=== PATIENT | male | born 1950 | race African-American/Black ===

== ENCOUNTER 2022-07-12 19:30 | Inpatient (IN) ==
[2022-07-12] MEDS ORDERED: SODIUM CHLORIDE 0.9% 1,000 ML IV STA (19:59)
[2022-07-12 21:00] LABS: Basophils % 0.1 % (0.0-0.8); Hematocrit 50.4 VOL% (42.0-52.0); Hemoglobin 17.7 GM/DL (14.0-18.0); Immature Granulocytes % 0.7 %; Immature Granulocytes Absolute 0.11 #; Lymphocytes # 0.8 10*3/uL (1.4-4.0); Lymphocytes % 5.3 % (21.2-54.2); Mean Corpuscular HGB Conc 35.1 GM/DL (32-36); Mean Corpuscular Volume 82.6 FL (87-102); Mean Platelet Volume 12.9 FL (9.6-12.0); Monocytes # 1.3 10*3/uL (0.11-0.8); Monocytes % 9.1 % (1.7-12.7); Neutrophils % 84.8 % (38.7-73.9); Platelet Count 85 T/CUMM (130-400); Red Cell Distribution Width 15.5 % (9.3-17.3); White Blood Count 14.8 T/CUMM (4-12)
[2022-07-12 21:09] LABS: Mucus,Urine Occasional /LPF (Occasional); RBC,Urine 9115 /HPF (0-4)
[2022-07-12 21:10] LABS: INR 1.2; PT Patient Result 13.5 SECS (10.1-12.1)
[2022-07-12 21:11] LABS: Bilirubin,Urine Moderate mg/dL (Negative); Glucose,Urine (UA) Negative (Negative); Ketones,Urine Trace mg/dL (Negative); Nitrite,Urine Positive (Negative); Protein,Urine >=300 mg/dL (Negative); Urine Appearance CLOUDY (Clear); Urine Color Brown (Yellow); Urine pH >= 9.0 (4.5-8.0)
[2022-07-12 21:12] LABS: Blood, Urine Large mg/dL (Negative)
[2022-07-12 21:31] LABS: Albumin 3.6 G/DL (3.4-5.0); Bilirubin,Total 1.7 MG/DL (0.20-1.00); Calcium 8.8 MG/DL (8.5-10.1); Osmolality,Calculated 308.3 MOS/KG (273-304); Potassium 3.4 MMOL/L (3.5-5.1); Total Protein 7.6 G/DL (6.4-8.2)
[2022-07-13] MEDS ORDERED: SODIUM CHLORIDE 0.9% 1,000 ML IV STA (00:10)
[2022-07-13] MEDS ORDERED: diphenhydrAMINE CAP 25 MG CAPSULE PO PRN (00:11)
[2022-07-13] MEDS ORDERED: ONDANSETRON 4 MG/2 ML VIAL IV PRN (00:11)
[2022-07-13] MEDS ORDERED: NICOTINE 21 MG/24 HR PATCH TRANSDERM PRN (00:11)
[2022-07-13] MEDS ORDERED: MORPHINE 2 MG/1 ML SYRINGE IV PRN (00:11)
[2022-07-13] MEDS ORDERED: hydrALAZINE 20 MG/1 ML VIAL IV PRN (00:11)
[2022-07-13] MEDS ORDERED: guaiFENesin/DM ER 600-30 MG TABLET PO PRN (00:11)
[2022-07-13] MEDS ORDERED: ZALEPLON 5 MG CAPSULE PO PRN (00:11)
[2022-07-13] MEDS ORDERED: ALBUTEROL/IPRATROPIUM 3 ML NEB RESP TX PRN (00:11)
[2022-07-13] MEDS: cefTRIAXone 1,000 MG in SODIUM CHLORIDE 0.9% 100 ML IV SCH (01:12)
[2022-07-13] MEDS: metroNIDAZOLE INJ 500 MG/100 ML PREMIX IV SCH ×3 (03:15→17:30)
[2022-07-13 03:48] LABS: Basophils % 0.1 % (0.0-0.8); Eosinophils % 0.1 % (0.00-10.9); Hematocrit 42.6 VOL% (42.0-52.0); Hemoglobin 14.8 GM/DL (14.0-18.0); Immature Granulocytes % 0.6 %; Immature Granulocytes Absolute 0.07 #; Lymphocytes # 0.9 10*3/uL (1.4-4.0); Lymphocytes % 7.3 % (21.2-54.2); Mean Corpuscular HGB Conc 34.7 GM/DL (32-36); Mean Corpuscular Volume 83.4 FL (87-102); Monocytes # 1.3 10*3/uL (0.11-0.8); Monocytes % 11.2 % (1.7-12.7); Neutrophils % 80.7 % (38.7-73.9); Platelet Count 59 T/CUMM (130-400); Red Blood Count 5.11 MC/CUMM (3.8-5.5); White Blood Count 11.8 T/CUMM (4-12)
[2022-07-13 03:51] LABS: Albumin 2.7 G/DL (3.4-5.0); Bilirubin,Total 1.1 MG/DL (0.20-1.00); Calcium 8.3 MG/DL (8.5-10.1); Osmolality,Calculated 307.1 MOS/KG (273-304); Potassium 3.2 MMOL/L (3.5-5.1); Total Protein 6.5 G/DL (6.4-8.2)
[2022-07-13 04:10] LABS: Platelet Estimate Decreased
[2022-07-13] MEDS: SODIUM CHLORIDE 0.9% 1,000 ML IV SCH ×2 (04:24→17:31)
[2022-07-13] MEDS ORDERED: POTASSIUM CHLORIDE RIDER 10 MEQ/100 ML PREMIX IV PRN (08:15)
[2022-07-13] MEDS: PANTOPRAZOLE 40 MG TABLET PO SCH (09:44)
[2022-07-13] MEDS ORDERED: PNEUMOCOCCAL VACCINE (13 VALENT) 0.5 ML SYRINGE IM ONE (11:15)
[2022-07-13] MEDS ORDERED: ALBUTEROL 2.5 MG/3 ML NEB RESP TX PRN (13:39)
[2022-07-13] MEDS: SIMVASTATIN 20 MG TABLET PO SCH (21:10)
[2022-07-13] MEDS: MIRTAZAPINE 30 MG TABLET PO SCH (21:10)
[2022-07-13] MEDS: POLYETHYLENE GLYCOL POWDER 17 GM PACK PO SCH (22:45)
[2022-07-14] MEDS: metroNIDAZOLE INJ 500 MG/100 ML PREMIX IV SCH ×2 (00:54→22:15)
[2022-07-14] MEDS: cefTRIAXone 1,000 MG in SODIUM CHLORIDE 0.9% 100 ML IV SCH (01:45)
[2022-07-14 05:56] LABS: Basophils % 0.1 % (0.0-0.8); Eosinophils # 0.1 10*3/uL (0.0-0.87); Eosinophils % 0.9 % (0.00-10.9); Hematocrit 37.5 VOL% (42.0-52.0); Hemoglobin 13.3 GM/DL (14.0-18.0); Immature Granulocytes % 0.5 %; Immature Granulocytes Absolute 0.04 #; Lymphocytes # 0.8 10*3/uL (1.4-4.0); Lymphocytes % 9.9 % (21.2-54.2); Mean Corpuscular HGB Conc 35.5 GM/DL (32-36); Mean Platelet Volume 12.4 FL (9.6-12.0); Monocytes % 11.7 % (1.7-12.7); Neutrophils % 76.9 % (38.7-73.9); Platelet Count 79 T/CUMM (130-400); Red Blood Count 4.52 MC/CUMM (3.8-5.5); White Blood Count 8.1 T/CUMM (4-12)
[2022-07-14 06:18] LABS: Platelet Estimate Decreased
[2022-07-14 06:20] LABS: Calcium 8.4 MG/DL (8.5-10.1); Osmolality,Calculated 304.8 MOS/KG (273-304)
[2022-07-14] MEDS ORDERED: POTASSIUM CHLORIDE 20 MEQ TABLET PO ONE (07:43)
[2022-07-14] MEDS: CIPROFLOXACIN INJ 200 MG/100 ML PREMIX IV SCH ×2 (11:37→20:32)
[2022-07-14] MEDS: SERTRALINE 100 MG TABLET PO SCH (11:38)
[2022-07-14] MEDS: ARIPiprazole 5 MG TABLET PO SCH (11:38)
[2022-07-14] MEDS: PANTOPRAZOLE 40 MG TABLET PO SCH (11:38)
[2022-07-14] MEDS: CYANOCOBALAMIN 500 MCG TABLET PO SCH (11:39)
[2022-07-14] MEDS: POLYETHYLENE GLYCOL POWDER 17 GM PACK PO SCH ×2 (11:39→20:31)
[2022-07-14] MEDS: METOPROLOL SUCCINATE XL 100 MG TABLET PO SCH (11:39)
[2022-07-14] MEDS: SIMVASTATIN 20 MG TABLET PO SCH (20:31)
[2022-07-14] MEDS: MIRTAZAPINE 30 MG TABLET PO SCH (20:31)
[2022-07-15] MEDS: SODIUM CHLORIDE 0.9% 1,000 ML IV SCH ×4 (01:39→22:00)
[2022-07-15 05:10] LABS: Basophils % 0.3 % (0.0-0.8); Hematocrit 35.5 VOL% (42.0-52.0); Immature Granulocytes % 1.2 %; Immature Granulocytes Absolute 0.09 #; Lymphocytes # 0.7 10*3/uL (1.4-4.0); Lymphocytes % 9.7 % (21.2-54.2); Mean Corpuscular HGB Conc 33.8 GM/DL (32-36); Mean Corpuscular Volume 84.9 FL (87-102); Mean Platelet Volume 11.7 FL (9.6-12.0); Monocytes # 0.8 10*3/uL (0.11-0.8); Monocytes % 11.3 % (1.7-12.7); Neutrophils % 77.5 % (38.7-73.9); Platelet Count 87 T/CUMM (130-400); Red Blood Count 4.18 MC/CUMM (3.8-5.5); Red Cell Distribution Width 14.8 % (9.3-17.3); White Blood Count 7.3 T/CUMM (4-12)
[2022-07-15 05:35] LABS: Calcium 8.4 MG/DL (8.5-10.1); Osmolality,Calculated 299.7 MOS/KG (273-304); Potassium 3.8 MMOL/L (3.5-5.1)
[2022-07-15 05:50] LABS: Platelet Estimate Decreased
[2022-07-15] MEDS: metroNIDAZOLE INJ 500 MG/100 ML PREMIX IV SCH (06:04)
[2022-07-15] MEDS: ARIPiprazole 5 MG TABLET PO SCH (09:45)
[2022-07-15] MEDS: CYANOCOBALAMIN 500 MCG TABLET PO SCH (09:45)
[2022-07-15] MEDS: POLYETHYLENE GLYCOL POWDER 17 GM PACK PO SCH ×2 (09:45→21:24)
[2022-07-15] MEDS: PANTOPRAZOLE 40 MG TABLET PO SCH (09:46)
[2022-07-15] MEDS: SERTRALINE 100 MG TABLET PO SCH (09:46)
[2022-07-15] MEDS: METOPROLOL SUCCINATE XL 100 MG TABLET PO SCH (09:46)
[2022-07-15] MEDS: CIPROFLOXACIN INJ 200 MG/100 ML PREMIX IV SCH (09:48)
[2022-07-15] MEDS: metroNIDAZOLE 500 MG TABLET PO SCH ×2 (15:09→21:24)
[2022-07-15] MEDS: amLODIPine 5 MG TABLET PO SCH (15:09)
[2022-07-15] MEDS: CIPROFLOXACIN 500 MG TABLET PO SCH (21:24)
[2022-07-15] MEDS: MIRTAZAPINE 30 MG TABLET PO SCH (21:24)
[2022-07-15] MEDS: SIMVASTATIN 20 MG TABLET PO SCH (21:24)
[2022-07-16 06:01] LABS: Basophils % 0.3 % (0.0-0.8); Eosinophils # 0.2 10*3/uL (0.0-0.87); Eosinophils % 2.1 % (0.00-10.9); Hematocrit 38.1 VOL% (42.0-52.0); Hemoglobin 13.2 GM/DL (14.0-18.0); Immature Granulocytes % 3.4 %; Immature Granulocytes Absolute 0.26 #; Lymphocytes # 1.2 10*3/uL (1.4-4.0); Lymphocytes % 15.8 % (21.2-54.2); Mean Corpuscular HGB Conc 34.6 GM/DL (32-36); Mean Corpuscular Volume 83.6 FL (87-102); Mean Platelet Volume 11.9 FL (9.6-12.0); Monocytes % 12.6 % (1.7-12.7); Neutrophils % 65.8 % (38.7-73.9); Platelet Count 92 T/CUMM (130-400); Red Blood Count 4.56 MC/CUMM (3.8-5.5); Red Cell Distribution Width 14.6 % (9.3-17.3); White Blood Count 7.6 T/CUMM (4-12)
[2022-07-16 06:16] LABS: Calcium 8.6 MG/DL (8.5-10.1); Osmolality,Calculated 288.1 MOS/KG (273-304); Potassium 3.2 MMOL/L (3.5-5.1)
[2022-07-16 06:23] LABS: Platelet Estimate Decreased
[2022-07-16] MEDS ORDERED: POTASSIUM CHLORIDE 20 MEQ TABLET PO ONE (08:35)
[2022-07-16] MEDS: POLYETHYLENE GLYCOL POWDER 17 GM PACK PO SCH ×2 (09:55→22:37)
[2022-07-16] MEDS: METOPROLOL SUCCINATE XL 100 MG TABLET PO SCH (09:57)
[2022-07-16] MEDS: amLODIPine 5 MG TABLET PO SCH (09:57)
[2022-07-16] MEDS: CYANOCOBALAMIN 500 MCG TABLET PO SCH (09:57)
[2022-07-16] MEDS: ARIPiprazole 5 MG TABLET PO SCH (09:57)
[2022-07-16] MEDS: SERTRALINE 100 MG TABLET PO SCH (09:58)
[2022-07-16] MEDS: PANTOPRAZOLE 40 MG TABLET PO SCH (09:58)
[2022-07-16] MEDS: CIPROFLOXACIN 500 MG TABLET PO SCH ×2 (09:58→22:38)
[2022-07-16] MEDS: metroNIDAZOLE 500 MG TABLET PO SCH ×3 (09:58→22:38)
[2022-07-16] MEDS: SODIUM CHLORIDE 0.9% 1,000 ML IV SCH (09:59)
[2022-07-16] MEDS ORDERED: amLODIPine 5 MG TABLET PO ONE (11:05)
[2022-07-16] MEDS ORDERED: MAGNESIUM SULF RIDER 4 GM/100 ML PREMIX IV ONE (11:13)
[2022-07-16] MEDS: SIMVASTATIN 20 MG TABLET PO SCH (22:38)
[2022-07-16] MEDS: TAMSULOSIN 0.4 MG CAPSULE PO SCH (22:38)
[2022-07-16] MEDS: MIRTAZAPINE 30 MG TABLET PO SCH (22:41)
[2022-07-17] MEDS: SODIUM CHLORIDE 0.9% 1,000 ML IV SCH ×2 (02:58→14:00)
[2022-07-17 06:55] LABS: Basophils % 0.4 % (0.0-0.8); Eosinophils % 0.5 % (0.00-10.9); Hematocrit 38.9 VOL% (42.0-52.0); Hemoglobin 13.4 GM/DL (14.0-18.0); Immature Granulocytes % 4.1 %; Immature Granulocytes Absolute 0.33 #; Lymphocytes # 1.1 10*3/uL (1.4-4.0); Lymphocytes % 13.8 % (21.2-54.2); Mean Corpuscular HGB Conc 34.4 GM/DL (32-36); Mean Corpuscular Volume 83.1 FL (87-102); Mean Platelet Volume 11.7 FL (9.6-12.0); Monocytes # 0.9 10*3/uL (0.11-0.8); Neutrophils % 70.2 % (38.7-73.9); Platelet Count 101 T/CUMM (130-400); Red Blood Count 4.68 MC/CUMM (3.8-5.5); Red Cell Distribution Width 14.7 % (9.3-17.3)
[2022-07-17 07:20] LABS: Calcium 8.7 MG/DL (8.5-10.1); Potassium 3.7 MMOL/L (3.5-5.1)
[2022-07-17] MEDS: ARIPiprazole 5 MG TABLET PO SCH (09:17)
[2022-07-17] MEDS: CYANOCOBALAMIN 500 MCG TABLET PO SCH (09:18)
[2022-07-17] MEDS: amLODIPine 10 MG TABLET PO SCH (09:18)
[2022-07-17] MEDS: metroNIDAZOLE 500 MG TABLET PO SCH ×3 (09:18→21:26)
[2022-07-17] MEDS: TAMSULOSIN 0.4 MG CAPSULE PO SCH ×2 (09:18→21:26)
[2022-07-17] MEDS: CIPROFLOXACIN 500 MG TABLET PO SCH ×2 (09:18→21:26)
[2022-07-17] MEDS: METOPROLOL SUCCINATE XL 100 MG TABLET PO SCH (09:19)
[2022-07-17] MEDS: SERTRALINE 100 MG TABLET PO SCH (09:19)
[2022-07-17] MEDS: PANTOPRAZOLE 40 MG TABLET PO SCH (09:19)
[2022-07-17] MEDS: POLYETHYLENE GLYCOL POWDER 17 GM PACK PO SCH ×2 (09:21→21:27)
[2022-07-17] MEDS ORDERED: LIDOCAINE 2% TOP JELLY 20 ML VIAL INTRAURETH ONE (10:00)
[2022-07-17] MEDS: SIMVASTATIN 20 MG TABLET PO SCH (21:26)
[2022-07-17] MEDS: MIRTAZAPINE 30 MG TABLET PO SCH (21:26)
[2022-07-18 05:12] LABS: Basophils % 0.3 % (0.0-0.8); Eosinophils # 0.2 10*3/uL (0.0-0.87); Eosinophils % 1.8 % (0.00-10.9); Hematocrit 36.7 VOL% (42.0-52.0); Hemoglobin 12.6 GM/DL (14.0-18.0); Immature Granulocytes % 4.3 %; Immature Granulocytes Absolute 0.39 #; Lymphocytes # 1.5 10*3/uL (1.4-4.0); Lymphocytes % 15.9 % (21.2-54.2); Mean Corpuscular HGB Conc 34.3 GM/DL (32-36); Mean Corpuscular Volume 84.6 FL (87-102); Mean Platelet Volume 11.2 FL (9.6-12.0); Monocytes # 0.9 10*3/uL (0.11-0.8); Monocytes % 9.7 % (1.7-12.7); Platelet Count 115 T/CUMM (130-400); Red Blood Count 4.34 MC/CUMM (3.8-5.5); Red Cell Distribution Width 14.7 % (9.3-17.3); White Blood Count 9.1 T/CUMM (4-12)
[2022-07-18 05:28] LABS: Calcium 8.5 MG/DL (8.5-10.1); Potassium 3.4 MMOL/L (3.5-5.1)
[2022-07-18] MEDS: METOPROLOL SUCCINATE XL 100 MG TABLET PO SCH (09:50)
[2022-07-18] MEDS: metroNIDAZOLE 500 MG TABLET PO SCH ×3 (09:50→20:01)
[2022-07-18] MEDS: CIPROFLOXACIN 500 MG TABLET PO SCH ×2 (09:50→20:01)
[2022-07-18] MEDS: CYANOCOBALAMIN 500 MCG TABLET PO SCH (09:50)
[2022-07-18] MEDS: amLODIPine 10 MG TABLET PO SCH (09:50)
[2022-07-18] MEDS: TAMSULOSIN 0.4 MG CAPSULE PO SCH ×2 (09:50→20:01)
[2022-07-18] MEDS: ARIPiprazole 5 MG TABLET PO SCH (09:50)
[2022-07-18] MEDS: POLYETHYLENE GLYCOL POWDER 17 GM PACK PO SCH ×2 (09:50→21:59)
[2022-07-18] MEDS: PANTOPRAZOLE 40 MG TABLET PO SCH (09:50)
[2022-07-18] MEDS: SERTRALINE 100 MG TABLET PO SCH (09:50)
[2022-07-18] MEDS: SODIUM CHLORIDE 0.9% 1,000 ML IV SCH (10:03)
[2022-07-18] MEDS: SIMVASTATIN 20 MG TABLET PO SCH (20:01)
[2022-07-18] MEDS: MIRTAZAPINE 30 MG TABLET PO SCH (20:01)
[2022-07-19 05:00] LABS: Basophils % 0.2 % (0.0-0.8); Eosinophils # 0.2 10*3/uL (0.0-0.87); Eosinophils % 1.8 % (0.00-10.9); Hematocrit 35.8 VOL% (42.0-52.0); Hemoglobin 12.2 GM/DL (14.0-18.0); Immature Granulocytes % 4.3 %; Immature Granulocytes Absolute 0.35 #; Lymphocytes # 1.7 10*3/uL (1.4-4.0); Lymphocytes % 21.1 % (21.2-54.2); Mean Corpuscular HGB Conc 34.1 GM/DL (32-36); Mean Corpuscular Volume 85.4 FL (87-102); Mean Platelet Volume 10.8 FL (9.6-12.0); Monocytes # 0.7 10*3/uL (0.11-0.8); Neutrophils % 63.6 % (38.7-73.9); Platelet Count 137 T/CUMM (130-400); Red Blood Count 4.19 MC/CUMM (3.8-5.5); Red Cell Distribution Width 14.8 % (9.3-17.3); White Blood Count 8.2 T/CUMM (4-12)
[2022-07-19 05:26] LABS: Calcium 8.5 MG/DL (8.5-10.1); Osmolality,Calculated 283.1 MOS/KG (273-304); Potassium 3.8 MMOL/L (3.5-5.1)
[2022-07-19] MEDS: SODIUM CHLORIDE 0.9% 1,000 ML IV SCH ×2 (10:27→17:48)
[2022-07-19] MEDS: ARIPiprazole 5 MG TABLET PO SCH (10:28)
[2022-07-19] MEDS: metroNIDAZOLE 500 MG TABLET PO SCH ×3 (10:28→21:40)
[2022-07-19] MEDS: METOPROLOL SUCCINATE XL 100 MG TABLET PO SCH (10:28)
[2022-07-19] MEDS: SERTRALINE 100 MG TABLET PO SCH (10:28)
[2022-07-19] MEDS: TAMSULOSIN 0.4 MG CAPSULE PO SCH ×2 (10:28→21:40)
[2022-07-19] MEDS: PANTOPRAZOLE 40 MG TABLET PO SCH (10:29)
[2022-07-19] MEDS: CYANOCOBALAMIN 500 MCG TABLET PO SCH (10:29)
[2022-07-19] MEDS: CIPROFLOXACIN 500 MG TABLET PO SCH ×2 (10:29→21:41)
[2022-07-19] MEDS: POLYETHYLENE GLYCOL POWDER 17 GM PACK PO SCH ×2 (10:29→21:41)
[2022-07-19] MEDS: amLODIPine 10 MG TABLET PO SCH (10:29)
[2022-07-19] MEDS: SIMVASTATIN 20 MG TABLET PO SCH (21:40)
[2022-07-19] MEDS: MIRTAZAPINE 30 MG TABLET PO SCH (21:41)
[2022-07-20 05:41] LABS: Basophils # 0.1 10*3/uL (0.0-0.2); Basophils % 0.4 % (0.0-0.8); Eosinophils # 0.1 10*3/uL (0.0-0.87); Eosinophils % 0.7 % (0.00-10.9); Hematocrit 35.6 VOL% (42.0-52.0); Hemoglobin 12.2 GM/DL (14.0-18.0); Immature Granulocytes % 2.1 %; Immature Granulocytes Absolute 0.26 #; Lymphocytes # 1.5 10*3/uL (1.4-4.0); Lymphocytes % 12.3 % (21.2-54.2); Mean Corpuscular HGB Conc 34.3 GM/DL (32-36); Mean Corpuscular Volume 85.4 FL (87-102); Mean Platelet Volume 10.7 FL (9.6-12.0); Monocytes # 0.7 10*3/uL (0.11-0.8); Monocytes % 5.5 % (1.7-12.7); Platelet Count 161 T/CUMM (130-400); Red Blood Count 4.17 MC/CUMM (3.8-5.5); Red Cell Distribution Width 14.8 % (9.3-17.3); White Blood Count 12.3 T/CUMM (4-12)
[2022-07-20 05:58] LABS: Calcium 8.6 MG/DL (8.5-10.1); Osmolality,Calculated 285.8 MOS/KG (273-304); Potassium 3.7 MMOL/L (3.5-5.1)
[2022-07-20] MEDS: ARIPiprazole 5 MG TABLET PO SCH (10:39)
[2022-07-20] MEDS: metroNIDAZOLE 500 MG TABLET PO SCH ×3 (10:39→20:40)
[2022-07-20] MEDS: TAMSULOSIN 0.4 MG CAPSULE PO SCH ×2 (10:39→20:40)
[2022-07-20] MEDS: CIPROFLOXACIN 500 MG TABLET PO SCH ×2 (10:39→20:40)
[2022-07-20] MEDS: SERTRALINE 100 MG TABLET PO SCH (10:39)
[2022-07-20] MEDS: PANTOPRAZOLE 40 MG TABLET PO SCH (10:40)
[2022-07-20] MEDS: CYANOCOBALAMIN 500 MCG TABLET PO SCH (10:40)
[2022-07-20] MEDS: amLODIPine 10 MG TABLET PO SCH (10:41)
[2022-07-20] MEDS: POLYETHYLENE GLYCOL POWDER 17 GM PACK PO SCH ×2 (10:42→20:42)
[2022-07-20] MEDS: METOPROLOL SUCCINATE XL 100 MG TABLET PO SCH (10:43)
[2022-07-20] MEDS ORDERED: ERGOCALCIFEROL 50,000 UNIT CAPSULE PO SCH (14:30)
[2022-07-20] MEDS: CALCIUM (CARBONATE) 500 MG TABLET PO SCH (16:05)
[2022-07-20] MEDS: SODIUM CHLORIDE 0.9% 1,000 ML IV SCH (16:05)
[2022-07-20] MEDS: MIRTAZAPINE 30 MG TABLET PO SCH (20:40)
[2022-07-20] MEDS: SIMVASTATIN 20 MG TABLET PO SCH (20:41)
[2022-07-21] MEDS: METOPROLOL SUCCINATE XL 100 MG TABLET PO SCH (09:24)
[2022-07-21] MEDS: POLYETHYLENE GLYCOL POWDER 17 GM PACK PO SCH ×2 (09:24→21:23)
[2022-07-21] MEDS: amLODIPine 10 MG TABLET PO SCH (09:25)
[2022-07-21] MEDS: TAMSULOSIN 0.4 MG CAPSULE PO SCH ×2 (09:25→21:23)
[2022-07-21] MEDS: CIPROFLOXACIN 500 MG TABLET PO SCH ×2 (09:25→21:22)
[2022-07-21] MEDS: SERTRALINE 100 MG TABLET PO SCH (09:25)
[2022-07-21] MEDS: metroNIDAZOLE 500 MG TABLET PO SCH ×3 (09:25→21:22)
[2022-07-21] MEDS: PANTOPRAZOLE 40 MG TABLET PO SCH (09:25)
[2022-07-21] MEDS: CALCIUM (CARBONATE) 500 MG TABLET PO SCH (09:25)
[2022-07-21] MEDS: CYANOCOBALAMIN 500 MCG TABLET PO SCH (09:25)
[2022-07-21] MEDS: ARIPiprazole 5 MG TABLET PO SCH (09:25)
[2022-07-21] MEDS: SODIUM CHLORIDE 0.9% 1,000 ML IV SCH (09:26)
[2022-07-21] MEDS: SIMVASTATIN 20 MG TABLET PO SCH (21:23)
[2022-07-21] MEDS: MIRTAZAPINE 30 MG TABLET PO SCH (21:23)
[2022-07-22 05:44] LABS: Basophils % 0.5 % (0.0-0.8); Eosinophils # 0.1 10*3/uL (0.0-0.87); Eosinophils % 1.4 % (0.00-10.9); Hematocrit 34.9 VOL% (42.0-52.0); Hemoglobin 11.9 GM/DL (14.0-18.0); Immature Granulocytes % 2.2 %; Immature Granulocytes Absolute 0.17 #; Lymphocytes # 1.6 10*3/uL (1.4-4.0); Lymphocytes % 20.1 % (21.2-54.2); Mean Corpuscular HGB Conc 34.1 GM/DL (32-36); Mean Corpuscular Volume 84.5 FL (87-102); Mean Platelet Volume 10.3 FL (9.6-12.0); Monocytes # 0.6 10*3/uL (0.11-0.8); Monocytes % 7.1 % (1.7-12.7); Neutrophils % 68.7 % (38.7-73.9); Platelet Count 179 T/CUMM (130-400); Red Blood Count 4.13 MC/CUMM (3.8-5.5); Red Cell Distribution Width 14.7 % (9.3-17.3); White Blood Count 7.9 T/CUMM (4-12)
[2022-07-22 06:12] LABS: Calcium 8.7 MG/DL (8.5-10.1); Osmolality,Calculated 284.1 MOS/KG (273-304); Potassium 3.8 MMOL/L (3.5-5.1)
[2022-07-22] MEDS ORDERED: cefTRIAXone 1,000 MG in SODIUM CHLORIDE 0.9% 100 ML IV ONE (07:18)
[2022-07-22] MEDS ORDERED: LACTATED RINGERS 1,000 ML IV SCH (08:00)
[2022-07-22] MEDS: ARIPiprazole 5 MG TABLET PO SCH (09:22)
[2022-07-22] MEDS: CIPROFLOXACIN 500 MG TABLET PO SCH (09:22)
[2022-07-22] MEDS: metroNIDAZOLE 500 MG TABLET PO SCH (09:22)
[2022-07-22] MEDS: amLODIPine 10 MG TABLET PO SCH (09:23)
[2022-07-22] MEDS: PANTOPRAZOLE 40 MG TABLET PO SCH (09:23)
[2022-07-22] MEDS: SERTRALINE 100 MG TABLET PO SCH (09:23)
[2022-07-22] MEDS: TAMSULOSIN 0.4 MG CAPSULE PO SCH (09:23)
[2022-07-22] MEDS: CYANOCOBALAMIN 500 MCG TABLET PO SCH (09:23)
[2022-07-22] MEDS: CALCIUM (CARBONATE) 500 MG TABLET PO SCH (09:23)
[2022-07-22] MEDS: POLYETHYLENE GLYCOL POWDER 17 GM PACK PO SCH (09:23)
[2022-07-22] MEDS: METOPROLOL SUCCINATE XL 100 MG TABLET PO SCH (09:23)
[2022-07-22] MEDS ORDERED: LIDOCAINE 2% TOP JELLY 20 ML VIAL INTRAURETH ONE (09:30)
[2022-07-22 10:40] LABS: Bacteria,Urine Occasional /HPF (Few); Bilirubin,Urine Negative (Negative); Blood, Urine Large mg/dL (Negative); Glucose,Urine (UA) Negative (Negative); Ketones,Urine Negative (Negative); Mucus,Urine Occasional /LPF (Occasional); Nitrite,Urine Negative (Negative); Protein,Urine 30 mg/dL (Negative); RBC,Urine 7 /HPF (0-4); Squamous Epithelial Cell,Urine Occasional /HPF (0-10); Urine Appearance CLOUDY (Clear); Urine Color Yellow (Yellow); Urine Specific Gravity 1.003 (1.001-1.035); Urine Urobilinogen < 2.0 eU/dL (<2.0)
[2022-07-22] MEDS ORDERED: TUBERCULIN SKIN TEST 0.1 ML SYRINGE INTRADERM ONE (11:00)
[2022-07-22 11:57] VITALS: BP 122/78
== END 2022-07-22 14:11 | disposition swing bed (61) | DRG 392 ==
LOC: N.ED 19:30 → N.EDINP 07-13 00:11 → SUATTDRO 07-13 00:11 → N.5E 07-13 15:59
PROVIDERS: ADMIT Internal Medicine; ATTEND Internal Medicine